=== PATIENT | female | born 2000 | race American Indian/Alaskan Native ===

== ENCOUNTER 2018-07-22 00:28 | Emergency (ER) | payer SELFPAY | END 2018-07-22 02:03 | disposition left against medical advice (07) | LOC: ED 00:28 ==

== ENCOUNTER 2018-07-22 19:30 | Emergency (ER) | payer SELFPAY ==
[2018-07-22 19:36] VITALS: BP 115/75
--- NOTE | 2018-07-22 19:49 | Emergency Department Report ---
Blank Doc - Documentation Documentation: c/o diff swallowing throat and left side face pain. OTC meds not working. Worst with laying down. This initial assessment diagnostic orders/clinical plan/treatment (s) is/Are subject change based on patient's health status, clinical progression and re- assessment by fellow clinical providers in the ED. Further treatment and work-up at subsequent clinical providers discretion. Patient/guardians urged not to elope from their condition may be serious if not clinically assessed and managed. Initial order include:
[2018-07-22] MEDS ORDERED: AUGMENTIN 875 MG PO ONE (20:22)
[2018-07-22] MEDS ORDERED: ULTRAM PO ONE (20:22)
--- NOTE | 2018-07-22 20:31 | Emergency Department Report ---
ED ENT HPI - General Chief complaint: Dental/Oral Stated complaint: PAIN LEFT KEYON OF JAW/FACE Time Seen by Provider: 07/22/18 20:21 Source: patient Mode of arrival: Ambulatory Limitations: No Limitations - History of Present Illness Initial comments: Patient is a 17 y/o aaf with hx of dental carries who presents with dental pain x 1 week 5/10 aching there is no trismus no facial or jaw swelling no st ridor, pain is relieved by nothing, pain is exacerbated by hot and cold stimuli. pt is tolerating po intake complaint: tooth pain Onset/Timin -: week(s) Location: tooth # ([id number]) Severity: moderate Severity scale (0 -10): 5 Quality: aching Consistency: constant Improves with: none Worsens with: eating, other (hot and cold stimuli ) Context- Dental: history of dental caries, poor dental care Associated Symptoms: toothache - Related Data Previous Rx's Medication Instructions Recorded Last Taken Type Amoxicillin/Potassium Clav 1 each PO BID 10 Days #20 tablet 07/22/18 Unknown Rx [Augmentin 875-125 Tablet] Chlorhexidine Mouthwash [Peridex] 15 ml MM BID #1 bottle 07/22/18 Unknown Rx traMADol [Ultram] 50 mg PO Q6HR PRN #12 tablet 07/22/18 Unknown Rx Allergies Allergy/AdvReac Type Severity Reaction Status Date / Time No Known Allergies Allergy Unverified 07/22/18 00:30 ED Dental HPI - General Chief complaint: Dental/Oral Stated complaint: PAIN LEFT KEYON OF JAW/FACE Time Seen by Provider: 07/22/18 20:21 Source: patient Mode of arrival: Ambulatory Limitations: No Limitations - Related Data Previous Rx's Medication Instructions Recorded Last Taken Type Amoxicillin/Potassium Clav 1 each PO BID 10 Days #20 tablet 07/22/18 Unknown Rx [Augmentin 875-125 Tablet] Chlorhexidine Mouthwash [Peridex] 15 ml MM BID #1 bottle 07/22/18 Unknown Rx traMADol [Ultram] 50 mg PO Q6HR PRN #12 tablet 07/22/18 Unknown Rx Allergies Allergy/AdvReac Type Severity Reaction Status Date / Time No Known Allergies Allergy Unverified 07/22/18 00:30 ED Review of Systems ROS: Stated complaint: PAIN LEFT KEYON OF JAW/FACE Other details as noted in HPI Constitutional: denies: chills, fever Eyes: denies: eye pain, eye discharge, vision change ENT: dental pain. denies: ear pain, throat pain Respiratory: denies: cough, shortness of breath, wheezing Cardiovascular: denies: chest pain, palpitations Endocrine: no symptoms reported Gastrointestinal: denies: abdominal pain, nausea, diarrhea Genitourinary: denies: urgency, dysuria, discharge Musculoskeletal: as per HPI Skin: denies: rash, lesions Neurological: denies: headache, weakness, paresthesias Psychiatric: denies: anxiety, depression Hematological/Lymphatic: denies: easy bleeding, easy bruising ED Past Medical Hx - Past Medical History Previous Medical History?: No - Surgical History Past Surgical History?: No - Social History Smoking Status: Current Every Day Smoker Substance Use Type: None - Medications Home Medications: Home Medications Medication Instructions Recorded Confirmed Last Taken Type Amoxicillin/Potassium Clav 1 each PO BID 10 Days #20 tablet 07/22/18 Unknown Rx [Augmentin 875-125 Tablet] Chlorhexidine Mouthwash [Peridex] 15 ml MM BID #1 bottle 07/22/18 Unknown Rx traMADol [Ultram] 50 mg PO Q6HR PRN #12 tablet 07/22/18 Unknown Rx ED Physical Exam - General Limitations: No Limitations General appearance: alert, in no apparent distress - Head Head exam: Present: atraumatic, normocephalic - Eye Eye exam: Present: normal appearance, PERRL, EOMI Pupils: Present: normal accommodation - ENT ENT exam: Present: TM's normal bilaterally, normal external ear exam - Expanded ENT Exam Expanded Ear exam: Present: normal external inspection Mouth exam: Absent: trismus Teeth exam: Present: dental caries (16), fractured tooth #, dental tenderness # Throat exam: Positive: normal inspection - Neck Neck exam: Present: normal inspection, full ROM. Absent: tenderness, meningismus, lymphadenopathy, thyromegaly - Respiratory Respiratory exam: Present: normal lung sounds bilaterally. Absent: respiratory distress, wheezes, stridor, chest wall tenderness - Cardiovascular Cardiovascular Exam: Present: regular rate, normal rhythm, normal heart sounds. Absent: systolic murmur, diastolic murmur, rubs, gallop - GI/Abdominal GI/Abdominal exam: Present: soft, normal bowel sounds - Rectal Rectal exam: Present: deferred (was) - Extremities Exam Extremities exam: Present: normal inspection, full ROM. Absent: tenderness - Back Exam Back exam: Present: normal inspection, full ROM. Absent: CVA tenderness (R), CVA tenderness (L) - Neurological Exam Neurological exam: Present: alert, oriented X3, CN II-XII intact, normal gait, reflexes normal - Psychiatric Psychiatric exam: Present: normal affect, normal mood - Skin Skin exam: Present: warm, dry, intact, normal color. Absent: rash ED Course Vital Signs 07/22/18 19:34 Temperature 99.4 F Pulse Rate 95 H Respiratory 14 Rate Blood Pressure 115/75 O2 Sat by Pulse 96 Oximetry ED Medical Decision Making - Medical Decision Making this is infected dental carries no trismus no fever no facial no throat swelling, plan augment, peridex, ultram follow up with [facility] tomorrow, pt verbalized agreement and understanding of discharge p kameron. Critical care attestation.: If time is entered above; I have spent that time in minutes in the direct care of this critically ill patient, excluding procedure time. ED Disposition Clinical Impression: Infected dental caries Disposition: TO HOME OR SELFCARE Is pt being admited?: No Does the pt Need Aspirin: No Condition: Stable Instructions: Dental Caries (ED) Prescriptions: Amoxicillin/Potassium Clav [Augmentin 875-125 Tablet] 1 each PO BID 10 Days #20 tablet Chlorhexidine Mouthwash [Peridex] 15 ml MM BID #1 bottle traMADol [Ultram] 50 mg PO Q6HR PRN #12 tablet PRN Reason: Pain Referrals: SHAE SEBASTIAN MD [Primary Care Provider] - 3-5 Days Forms: Work/School Release Form(ED) Time of Disposition: 20:45
== END 2018-07-22 20:50 | disposition home or self-care (01) ==
LOC: ED 19:30
DX: K02.9 Dental caries, unspecified (principal); F17.200 Nicotine dependence, unspecified, uncomplicated
CPT/HCPCS: 99282